=== PATIENT | male | born 1960 ===

== ENCOUNTER → 2017-03-31 | Outpatient (CLI) | payer OTHER, MEDICAID | LOC: CIMAGING 13:02 | PROVIDERS: ATTEND Psychiatry & Neurology Neurology | DX: R51 Headache (principal); G89.29 Other chronic pain; M79.606 Pain in leg, unspecified; Z86.73 Personal history of transient ischemic attack (TIA), and cerebral infarction without residual deficits | CPT/HCPCS: 70450-PO ==